=== PATIENT | female | born 1985 | race Two or more races ===

== ENCOUNTER 2019-05-19 18:39 | Emergency (ER) | payer MEDICAID ==
[~2019-05-19] VITALS: Ht 157.5 cm; Wt 59.0 kg
[2019-05-19 18:58] VITALS: BP 113/75
--- NOTE | 2019-05-19 19:02 | NUR ---
ED Nurse Note: Patient brought in to ER from home accompanied by sister due to ETOH. per sister, pt has been drinking vodka for last 72 hours. Patient alert and oriented x1, spontaneous eye opening and responding to voice. no combative behavior noted at this time. pt drowsy and asleep. Skin clean and intact but Lt knee old dry scar with edema noted. ERPA made aware. No cardiac or acute distress noted at this time. sister at bedside.
--- NOTE | 2019-05-19 19:10 | NUR ---
HAND-OFF: Report given to EDDIE Camejo. urine needs to be collected.
--- NOTE | 2019-05-19 19:10 | Emergency Room Report ---
History of Present Illness General Chief Complaint: Alcohol Intoxication Present Illness HPI 33-year-old female presents to the emergency department for alcohol intoxication. Patient presents with her family member whom states that she has been binge drinking a liter of vodka for the past 72 hours. Family states that patient has a history of alcohol dependency as well as withdrawal seizures. Patient's last seizure was in December. Patient is not prescribed any antiseizure medications she is prescribed antidepressants and Adderall for which the family member believes that the patient has not been compliant with. Prior to episode of binge drinking patient was sober for 2 weeks. Denies nausea vomiting. Reports 7 out of 10 severity pain, swelling and erythema with an abrasion to the left knee times unknown amount of time. Denies hitting her head, having a loss of consciousness, or having neck or back pain. Denies history of cardiac or liver problems. Denies chest pain, palpitations, or a sudden onset headache. (Kamila Mendez) Allergies: Coded Allergies: Pork (Verified Allergy, Unknown, 05/19/19) Patient History Past Medical History: see triage record, seizures Past Surgical History: none Pertinent Family History: none Social History: Reports: alcohol use Now: No Reviewed Nursing Documentation: PMH: Agreed; PSxH: Agreed (Kamila Mendez) Review of Systems All Other Systems: negative except mentioned in HPI (Kamila Mendez) Physical Exam Vital Signs Date Time Temp Pulse Resp B/P (MAP) Pulse Ox O2 Delivery O2 Flow Rate FiO2 05/19/19 18:34 98.4 89 16 113/75 (88) 97 Room Air Sp02 EP Interpretation: reviewed, normal General Appearance: no apparent distress, alert, GCS 15, non-toxic Head: normocephalic, atraumatic Eyes: bilateral eye normal inspection, bilateral eye PERRL ENT: hearing grossly normal, normal voice Neck: full range of motion, no bony tend Respiratory: lungs clear, normal breath sounds, speaking full sentences Cardiovascular #1: regular rate, rhythm, normal capillary refill Gastrointestinal: non tender, soft, non-distended, no guarding Rectal: deferred Genitourinary: normal inspection, no CVA tenderness Musculoskeletal: back normal, normal range of motion, tender - anterior left knee Neurologic: alert, responsive, motor strength/tone normal, sensory intact, grossly normal Psychiatric: judgement/insight normal Skin: abrasion, other Lymphatic: no adenopathy (Kamila Mendez) Medical Decision Making PA Attestation Dr. Rodriguez is my supervising Physician whom patient management has been discussed with. (Kamila Mendez) Diagnostic Impression: Primary Impression: Acute alcoholic intoxication Qualified Codes: F10.920 - Alcohol use, unspecified with intoxication, uncomplicated Additional Impressions: History of seizures Knee abrasion Qualified Codes: S80.212A - Abrasion, left knee, initial encounter Cellulitis Qualified Codes: L03.116 - Cellulitis of left lower limb ER Course Pt. presents to the ED intoxicated with alcohol, pt. is NAD, pt. is alert, no obvious signs of trauma, able to ambulate to chair. Ddx considered but are not limited to ETOH, Trauma, Syncope, dementia, OD Vital signs: are WNL, pt. is afebrile H&PE are most consistent with ETOH abuse. ORDERS: none required at this time ED INTERVENTIONS: Observance while she detoxifies for signs of acute w/d . Pt. was allowed to sleep/rest. DISCHARGE: At this time pt. is stable for d/c to home. Will provide printed patient care instructions, and any necessary prescriptions. Care plan and follow up instructions have been discussed with the patient prior to discharge. (Kamila Mendez) ER Course Patient presents with alcohol intoxication. She signed out to me. She is now awake walking to the bathroom without any difficulty. Will discharge home. Because of her history of alcohol withdrawal seizure, will put her on Librium. She also has small abrasion to her knee with possible cellulitis. We will put her on antibiotics also. (Nael Clements MD) Last Vital Signs Date Time Temp Pulse Resp B/P (MAP) Pulse Ox O2 Delivery O2 Flow Rate FiO2 05/19/19 18:58 98.4 80 16 113/75 97 Room Air (Kamila Mendez) Status: improved (Nael Clements MD) Disposition: HOME, SELF-CARE Condition: Stable Scripts Chlordiazepoxide (Chlordiazepoxide HCl) 25 Mg Capsule 25 MG ORAL THREE TIMES A DAY, #15 CAP 0 Refills Prov: Nael Clements MD 05/19/19 Trimethoprim/Sulfamethoxazole 160/800* (BACTRIM DS TABLET*) 1 Each Tablet 1 TAB ORAL Q12H, #14 TAB 0 Refills Prov: Nael Clements MD 05/19/19 Patient Instructions: Alcohol Intoxication, [id number] Additional Instructions: Follow-up with your doctor in 7 days. Go to rehab. Return if worse. Kamila Mendez May 19, 2019 19:10 Nael Clements MD May 19, 2019 22:49
--- NOTE | 2019-05-19 19:12 | NUR ---
ED Nurse Note: pt was able to use bedside commode. she is unsteady on her feet. fluids are running, she does not appear to be in any distress at this time. her sister is at bedside. will continue to monitor
[2019-05-19 19:19] LABS: BASOPHILS % (AUTO) 1.6 % (0.0-2.0); EOSINOPHILS % (AUTO) 0.4 % (0.0-3.0); HEMATOCRIT 34.2 % (37.0-47.0); HEMOGLOBIN 10.9 G/DL (12.0-16.0); LYMPHOCYTES % (AUTO) 29.5 % (20.0-45.0); MEAN CORPUSCULAR VOLUME 81 FL (80-99); MONOCYTES % (AUTO) 4.4 % (1.0-10.0); NEUTROPHILS % (AUTO) 64.2 % (45.0-75.0); PLATELET COUNT 394 K/UL (150-450); RED BLOOD COUNT 4.23 M/UL (4.20-5.40); RED CELL DISTRIBUTION WIDTH 16.6 % (11.6-14.8); WHITE BLOOD COUNT 4.9 K/UL (4.8-10.8)
--- NOTE | 2019-05-19 19:24 | NUR ---
ED Nurse Note: x ray is at pt bedside
[2019-05-19 19:27] LABS: ANION GAP 11 mmol/L (5-15); BLOOD UREA NITROGEN 10 mg/dL (7-18); CALCIUM 7.2 MG/DL (8.5-10.1); CARBON DIOXIDE 26 MMOL/L (21-32); CHLORIDE 111 MMOL/L (98-107); CREATININE 0.5 MG/DL (0.55-1.30); POTASSIUM 3.5 MMOL/L (3.5-5.1); SODIUM 148 MMOL/L (136-145)
[2019-05-19 19:33] LABS: ALANINE AMINOTRANSFERASE 42 U/L (12-78); ALBUMIN 3.6 G/DL (3.4-5.0); ALBUMIN/GLOBULIN RATIO 1.2 (1.0-2.7); ALKALINE PHOSPHATASE 64 U/L (46-116); ASPARTATE AMINO TRANSFERASE 28 U/L (15-37); BILIRUBIN,TOTAL 0.1 MG/DL (0.2-1.0)
[2019-05-19 20:28] VITALS: BP 121/80
--- NOTE | 2019-05-19 20:53 | NUR ---
ED Nurse Note: pt mother and sister both at bedside. pt asked for food and was able to finish a ham sandwich and apple juice
--- NOTE | 2019-05-19 21:00 | NUR ---
ED Nurse Note: ER PA is at bedside talking with pt and family
--- NOTE | 2019-05-19 21:45 | NUR ---
ED Nurse Note: pt's sister's contact info: [phone]
[2019-05-19] MEDS ORDERED: Cephalexin 500mg cap ORAL ONE (22:15)
[2019-05-19] MEDS ORDERED: chlordiazePOXIDE 25mg Cap ORAL ONE (22:45)
[2019-05-19] MEDS ORDERED: LIBRIUM25 MG ORAL (22:48)
[2019-05-19] MEDS ORDERED: BACTRIM DS TAB1 EAC1 ORAL (22:48)
[2019-05-19 22:54] VITALS: BP 121/80
--- NOTE | 2019-05-19 22:54 | NUR ---
ER DISCHARGE NOTE: Patient is cleared to be discharged per ERMD, pt is aox4, on room air, with stable vital signs. pt was given dc and prescription instructions, pt was able to verbalize understanding, pt id band and iv site removed without complications. pt is able to ambulate with steady gait. pt took all belongings and left with family.
--- NOTE | 2019-05-20 12:03 | Diagnostic Imaging Report ---
Indication: Left knee pain Technique: 3 views of the left knee Comparison: None Findings: No suprapatellar effusion. No acute fractures. No dislocations. Impression: Negative
== END 2019-05-19 22:54 | disposition home or self-care (01) ==
LOC: EDBD 18:39 → EMR 18:50
DX: F10.929 Alcohol use, unspecified with intoxication, unspecified (principal); G40.909 Epilepsy, unspecified, not intractable, without status epilepticus; S80.212A Abrasion, left knee, initial encounter; L03.116 Cellulitis of left lower limb; X58.XXXA Exposure to other specified factors, initial encounter; Y92.9 Unspecified place or not applicable
CPT/HCPCS: 36415; 73562; 80053; 80307; 81025; 82962; 85025; 96361; 96374; 96375; G0480; G0481; J2405; Z7502; 99284

== ENCOUNTER 2019-05-28 18:36 | Emergency (ER) | payer MEDICAID ==
[2019-05-28] VITALS (7 sets, daily range): BP systolic 112–124; BP diastolic 66–85
[~2019-05-28] VITALS: Ht 162.6 cm; Wt 63.5 kg
[~2019-05-28 18:36] MED LIST: BACTRIM DS TAB1 EAC1 ORAL; LIBRIUM25 MG ORAL
--- NOTE | 2019-05-28 18:36 | NUR ---
ED Nurse Note: KAYY notified and received order for sitter at the bedside for pt on 5150. dts. pt currently calm, suicide precautions in place, mother at the bedside. sitter Zhang at the bedside as well.
--- NOTE | 2019-05-28 18:36 | NUR ---
ED Nurse Note: nurse sup notified for sitter.
--- NOTE | 2019-05-28 18:36 | NUR ---
ED Nurse Note: BROUGHT BY RA34 FROM HOME DUE TO ETOH AND SI; 150ML VODKA WITHIN 1 HOUR DUE TO SI. A/OX4. BS 101
[2019-05-28] MEDS ORDERED: Thiamine 100mg tab ORAL ONE (18:45)
--- NOTE | 2019-05-28 18:49 | NUR ---
ED Nurse Note: [employer] AND MOTHER AT BEDSIDE.
--- NOTE | 2019-05-28 18:52 | NUR ---
HAND-OFF: Report given to Heriberto Moscoso RN. NAD noted. [employer] at bedside
[2019-05-28 19:01] LABS: HEMATOCRIT 34.5 % (37.0-47.0); HEMOGLOBIN 11.2 G/DL (12.0-16.0); MEAN CORPUSCULAR VOLUME 78 FL (80-99); PLATELET COUNT 97 K/UL (150-450); RED BLOOD COUNT 4.41 M/UL (4.20-5.40); RED CELL DISTRIBUTION WIDTH 17.5 % (11.6-14.8); WHITE BLOOD COUNT 2.9 K/UL (4.8-10.8)
[2019-05-28] MEDS ORDERED: Thiamine 100mg tab ONE (19:07)
[2019-05-28 19:09] LABS: ANION GAP 12 mmol/L (5-15); BLOOD UREA NITROGEN 11 mg/dL (7-18); CALCIUM 8.6 MG/DL (8.5-10.1); CARBON DIOXIDE 28 MMOL/L (21-32); CHLORIDE 107 MMOL/L (98-107); CREATININE 0.4 MG/DL (0.55-1.30); POTASSIUM 3.9 MMOL/L (3.5-5.1); SODIUM 147 MMOL/L (136-145)
[2019-05-28 19:15] LABS: ALANINE AMINOTRANSFERASE 94 U/L (12-78); ALBUMIN 4.1 G/DL (3.4-5.0); ALBUMIN/GLOBULIN RATIO 1.1 (1.0-2.7); ALKALINE PHOSPHATASE 120 U/L (46-116); ASPARTATE AMINO TRANSFERASE 161 U/L (15-37); BILIRUBIN,TOTAL 0.2 MG/DL (0.2-1.0)
--- NOTE | 2019-05-28 19:15 | NUR ---
ED Nurse Note: received patient from anastasiya smith. patient resting in bed with no acute distress. pd and family at bedside. iv intact and patent; fluids running as prescribed. environmental risk reduction observed. patient denies hi or si. dimmed lights, provided warm blanket, decreased environmental stimuli. will continue to monitor.
--- NOTE | 2019-05-28 19:30 | NUR ---
ED Nurse Note: urine collected; sent down to lab.
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
--- NOTE | 2019-05-28 20:15 | NUR ---
ED Nurse Note: patient in bed with no acute distress. family at bedside. bed rails raised; bed locked at lowest position. belongings locked in psych locker #3.
--- NOTE | 2019-05-28 21:10 | NUR ---
ED Nurse Note: patient sleeping in bed with no acute distress. respirations even and unlabored.
--- NOTE | 2019-05-28 22:30 | NUR ---
ED Nurse Note: patient resting in bed. provided nourishment and warm blankets. repositioned for comfort. family at bedside.
[2019-05-28] MEDS ORDERED: chlordiazePOXIDE 25mg Cap ORAL ONE (23:30)
[2019-05-28] MEDS ORDERED: LORazepam Inj 2mg/ml 1ml IV ONE (23:30)
--- NOTE | 2019-05-28 23:45 | NUR ---
ED Nurse Note: patient sleeping in bed with no acute distress. respirations even and unlabored. vss. family at bedside. decreased environmental stimuli
[2019-05-29] VITALS (11 sets, daily range): BP systolic 115–128; BP diastolic 71–89
--- NOTE | 2019-05-29 00:07 | NUR ---
ED Nurse Note: repeat alcohol level drawn; sent down to lab. patient sleeping in bed with no acute distress. family member at bedside.
--- NOTE | 2019-05-29 01:15 | NUR ---
ED Nurse Note: assisted patient to the bathroom. ambulates with steady gait. assisted back to bed; patient resting with no acute distress. side rails raised; bed locked at lowest position. family at bedside.
--- NOTE | 2019-05-29 02:10 | NUR ---
ED Nurse Note: patient sleeping in bed with no acute signs of distress. respirations even and unlabored. will continue to monitor.
--- NOTE | 2019-05-29 03:30 | NUR ---
ED Nurse Note: patient sleeping in bed.nad. vss.
--- NOTE | 2019-05-29 04:50 | NUR ---
ED Nurse Note: patient reports discomfort with iv. per angelica, ok to dc iv. patient resting in bed with no acute distress. discussed plan of care with patient; aware of pending transfer to psych facility, understand 5150 status, made aware of repeat blood alcohol blood draw at 0600. family at bedside. will continue to monitor.
--- NOTE | 2019-05-29 05:40 | NUR ---
ED Nurse Note: repeat blood alcohol level drawn; sent down to lab. patient ao4. nad. vss. patient calm and cooperative. denies pain or any complaints at this time. denies hi or si. states "i feel so much better now. i don't know why i drank so much." family at bedside.
--- NOTE | 2019-05-29 06:29 | NUR ---
ED Nurse Note: patient awake and ambulatory with steady gait. provided with nourishment. ao4. nad. family at bedside.
--- NOTE | 2019-05-29 07:24 | NUR ---
HAND-OFF: Report given to yolis smith.
--- NOTE | 2019-05-29 07:42 | NUR ---
ED Nurse Note: resumed care 0725 pt sleeping mother and sitter at bedside. etoh level drawn and sent to lab.
[2019-05-29 10:42] LABS: APPEARANCE,URINE CLEAR; BILIRUBIN, URINE NEGATIVE (NEGATIVE); COLOR,URINE PALE YELLOW; GLUCOSE, URINE (UA) NEGATIVE (NEGATIVE); KETONES,URINE NEGATIVE (NEGATIVE); LEUKOCYTE ESTERASE ,URINE NEGATIVE (NEGATIVE); NITRITE,URINE NEGATIVE (NEGATIVE); PH,URINE 6.5 (4.5-8.0); PROTEIN,URINE NEGATIVE (NEGATIVE); UROBILINOGEN,URINE NORMAL MG/DL (0.0-1.0)
--- NOTE | 2019-05-29 11:05 | NUR ---
ED Nurse Note: Pt's urine was sent and resulted per accepting favility request. pt sleeping no new orders.
--- NOTE | 2019-05-29 11:53 | NUR ---
[facility] was called and transport for 1500 has been arranged.
--- NOTE | 2019-05-29 14:20 | NUR ---
ED Nurse Note: pt ambulated to restroom with steady gait sitter at bedside .
--- NOTE | 2019-05-29 14:20 | NUR ---
ED Nurse Note: pt provided with a lunch tray.
--- NOTE | 2019-05-29 15:05 | NUR ---
ED Nurse Note: pt picked up via [id number] now
--- NOTE | 2019-05-29 15:06 | NUR ---
ED Nurse Note: Pt cleared by health care Provider for discharge. DC instruction was given and explained to pt and verbalized understanding of teachings. All medical deviecs such as ID band removed. Pt is AAO x4, ambulatory and left with all personal belongings via [id number]
== END 2019-05-29 15:00 ==
LOC: EDBD 18:36 → EMR 19:38
DX: T51.0X2A Toxic effect of ethanol, intentional self-harm, initial encounter (principal); F10.920 Alcohol use, unspecified with intoxication, uncomplicated; Y92.9 Unspecified place or not applicable; Z91.018 Allergy to other foods
CPT/HCPCS: 36415; 80053; 80307; 81003; 81025; 85007; 85025; 96361; 96374; G0480; G0481; Z7502; 99284; 99285

== ENCOUNTER 2019-06-09 20:57 | Emergency (ER) | payer MEDICAID ==
[~2019-06-09] VITALS: Ht 157.5 cm; Wt 59.0 kg
[2019-06-09] MEDS ORDERED: LIBRIUM10 MG ORAL (21:06)
[2019-06-09] MEDS ORDERED: TRAZODONE HCL100 MG ORAL (21:06)
[2019-06-09] MEDS ORDERED: ZOFRAN4 M3 ORAL (21:06)
--- NOTE | 2019-06-09 21:08 | NUR ---
ED Nurse Note: pt ambulated to ed c/o alcohol withdrawal. per pt her she had a pint of alcohol this morning. pt presents with tremors, and states that she threw up "20 times and havent been able to eat anything today"
--- NOTE | 2019-06-09 21:10 | NUR ---
ED Nurse Note: pt mother at bedside
[2019-06-09 21:11] VITALS: BP 125/79
--- NOTE | 2019-06-09 21:38 | NUR ---
ED Nurse Note: iv line established, patent and intact. blood specimen collected; sent to lab. pt urine sample also obtained and sent to lab.
[2019-06-09] MEDS ORDERED: LORazepam Inj 2mg/ml 1ml IV ONE ×2 (21:45→23:00)
[2019-06-09 21:59] LABS: HEMATOCRIT 27.3 % (37.0-47.0); HEMOGLOBIN 8.9 G/DL (12.0-16.0); MEAN CORPUSCULAR VOLUME 80 FL (80-99); PLATELET COUNT 175 K/UL (150-450); RED BLOOD COUNT 3.41 M/UL (4.20-5.40); RED CELL DISTRIBUTION WIDTH 18.5 % (11.6-14.8)
[2019-06-09 22:04] LABS: ANION GAP 9 mmol/L (5-15); BLOOD UREA NITROGEN 8 mg/dL (7-18); CALCIUM 8.7 MG/DL (8.5-10.1); CARBON DIOXIDE 30 MMOL/L (21-32); CHLORIDE 100 MMOL/L (98-107); CREATININE 0.5 MG/DL (0.55-1.30); POTASSIUM 3.6 MMOL/L (3.5-5.1); SODIUM 139 MMOL/L (136-145)
[2019-06-09 22:09] LABS: ALANINE AMINOTRANSFERASE 109 U/L (12-78); ALBUMIN/GLOBULIN RATIO 1.1 (1.0-2.7); ALKALINE PHOSPHATASE 89 U/L (46-116); ASPARTATE AMINO TRANSFERASE 122 U/L (15-37); BILIRUBIN,TOTAL 0.5 MG/DL (0.2-1.0)
[2019-06-09] MEDS ORDERED: Ketorolac 30mg Inj IV ONE (23:00)
[2019-06-10 00:10] VITALS: BP 122/82
--- NOTE | 2019-06-10 00:10 | NUR ---
ER DISCHARGE NOTE: Patient is cleared to be discharged per ERMD, pt is aox4, on room air, with stable vital signs. accompanied by family member. patient provided with detox and drug rehab referrals. pt was given dc and prescription instructions, pt was able to verbalize understanding, pt id band and iv site removed without complications. pt is able to ambulate with steady gait. pt took all belongings.
--- NOTE | 2019-06-10 00:30 | Emergency Room Report ---
History of Present Illness General Chief Complaint: Alcohol Intoxication Source: Patient, Family Member Present Illness HPI 34-year-old female presents ED for evaluation. Brought in by family for alcohol withdrawal. Patient states he has been drinking every day for months. States her last drink was this morning. States she is feeling shaky. Denies drug use. Denies SI or HI. Denies hearing voices. Notes nausea, denies vomiting. Denies abdominal pain. No other aggravating relieving factors. Denies any other associated symptoms Allergies: Coded Allergies: Pork (Verified Allergy, Unknown, 05/19/19) Patient History Past Medical History: seizures Past Surgical History: none Pertinent Family History: none Social History: Reports: alcohol use; Denies: smoking, drug use Last Menstrual Period: 05/31/19 Now: No Immunizations: UTD Reviewed Nursing Documentation: PMH: Agreed; PSxH: Agreed Nursing Documentation-PMH Past Medical History: No History, Except For Hx Seizures: Yes Review of Systems All Other Systems: negative except mentioned in HPI Physical Exam Vital Signs Date Time Temp Pulse Resp B/P (MAP) Pulse Ox O2 Delivery O2 Flow Rate FiO2 06/09/19 21:01 98.8 105 14 125/79 (94) 97 Room Air Sp02 EP Interpretation: reviewed, normal General Appearance: no apparent distress, alert, GCS 15, non-toxic Head: normocephalic, atraumatic Eyes: bilateral eye normal inspection, bilateral eye PERRL ENT: hearing grossly normal, normal pharynx, no angioedema, normal voice Neck: full range of motion, supple/symm/no masses Respiratory: chest non-tender, lungs clear, normal breath sounds, speaking full sentences Cardiovascular #1: regular rate, rhythm, no edema Cardiovascular #2: 2+ carotid (R), 2+ carotid (L), 2+ radial (R), 2+ radial (L) , 2+ dorsalis pedis (R), 2+ dorsalis pedis (L) Gastrointestinal: normal bowel sounds, non tender, soft, non-distended, no guarding, no rebound Rectal: deferred Genitourinary: normal inspection, no CVA tenderness Musculoskeletal: back normal, normal range of motion, gait/station normal, non- tender Neurologic: alert, motor strength/tone normal, oriented x3, sensory intact, responsive, speech normal Psychiatric: no suicidal/homicidal ideation, no delusions, anxious Reflexes: 3+ bicep (R), 3+ bicep (L), 3+ tricep (R), 3+ tricep (L), 3+ knee (R) , 3+ knee (L) Skin: no rash Lymphatic: no adenopathy Medical Decision Making Diagnostic Impression: Primary Impression: Alcohol withdrawal Qualified Codes: F10.239 - Alcohol dependence with withdrawal, unspecified ER Course Hospital Course 34-year-old female presents ED complaining of shaking, stating she is in withdrawal. Chronic history of alcohol use Differential diagnoses include: Alcohol intoxication, drug abuse, opioid withdrawal, alcohol withdrawal, dehydration, drug seeking behavior Clinical course Patient placed on stretcher. On quality control clerk. After initial history and physical I ordered labs, IV fluids, Ativan, zofran Labs reviewed-electrolytes okay, hemoglobin/hematocrit stable, no leukocytosis, alcohol level negative aspirin/Tylenol levels negative, Utox +BZs Patient has been prescribed Librium and Zofran from another emergency room. I discussed findings with patient and family. Symptoms controlled in ED. Vitals stable no signs of acute withdrawal or DTs. patient can be safely discharged to home. Encourage patient to continue the Librium and Zofran as prescribed. Will provide outpatient detox referral services i. I feel this is a highly complex case requiring extensive working including EKG/Rhythm strip, Xray/CT/US, Blood/urine lab work, repeat exams while in ED, and administration of strong opiates/narcotics for pain control, admission to hospital or close patient follow up. Diagnosis - alcohol withdrawal Stable and discharged to home. Followup with PMD/detox. Return to ED if symptoms recur or worsen Labs Test 06/09/19 21:35 White Blood Count 3.0 K/UL (4.8-10.8) Red Blood Count 3.41 M/UL (4.20-5.40) Hemoglobin 8.9 G/DL (12.0-16.0) Hematocrit 27.3 % (37.0-47.0) Mean Corpuscular Volume 80 FL (80-99) Mean Corpuscular Hemoglobin 26.1 PG (27.0-31.0) Mean Corpuscular Hemoglobin Concent 32.6 G/DL (32.0-36.0) Red Cell Distribution Width 18.5 % (11.6-14.8) Platelet Count 175 K/UL (150-450) Mean Platelet Volume 4.9 FL (6.5-10.1) Neutrophils (%) (Auto) % (45.0-75.0) Lymphocytes (%) (Auto) % (20.0-45.0) Monocytes (%) (Auto) % (1.0-10.0) Eosinophils (%) (Auto) % (0.0-3.0) Basophils (%) (Auto) % (0.0-2.0) Differential Total Cells Counted 100 Neutrophils % (Manual) 75 % (45-75) Lymphocytes % (Manual) 20 % (20-45) Monocytes % (Manual) 5 % (1-10) Eosinophils % (Manual) 0 % (0-3) Basophils % (Manual) 0 % (0-2) Band Neutrophils 0 % (0-8) Platelet Estimate Adequate Platelet Morphology Normal Polychromasia 1+ Hypochromasia 1+ Anisocytosis 1+ Microcytosis 1+ Sodium Level 139 MMOL/L (136-145) Potassium Level 3.6 MMOL/L (3.5-5.1) Chloride Level 100 MMOL/L (98-107) Carbon Dioxide Level 30 MMOL/L (21-32) Anion Gap 9 mmol/L (5-15) Blood Urea Nitrogen 8 mg/dL (7-18) Creatinine 0.5 MG/DL (0.55-1.30) Estimat Glomerular Filtration Rate > 60 mL/min (>60) Glucose Level 87 MG/DL (74-106) Calcium Level 8.7 MG/DL (8.5-10.1) Total Bilirubin 0.5 MG/DL (0.2-1.0) Aspartate Amino Transf (AST/SGOT) 122 U/L (15-37) Alanine Aminotransferase (ALT/SGPT) 109 U/L (12-78) Alkaline Phosphatase 89 U/L (46-116) Total Protein 7.5 G/DL (6.4-8.2) Albumin 4.0 G/DL (3.4-5.0) Globulin 3.5 g/dL Albumin/Globulin Ratio 1.1 (1.0-2.7) Human Chorionic Gonadotropin, Qual Negative (NEGATIVE) Salicylates Level < 0.2 ug/mL (2.8-20) Urine Opiates Screen Negative (NEGATIVE) Acetaminophen Level < 2 MCG/ML (10-30) Urine Barbiturates Screen Negative (NEGATIVE) Phencyclidine (PCP) Screen Negative (NEGATIVE) Urine Amphetamines Screen Negative (NEGATIVE) Urine Benzodiazepines Screen Positive (NEGATIVE) Urine Cocaine Screen Negative (NEGATIVE) Urine Marijuana (THC) Screen Negative (NEGATIVE) Serum Alcohol < 3 mg/dL Last Vital Signs Date Time Temp Pulse Resp B/P (MAP) Pulse Ox O2 Delivery O2 Flow Rate FiO2 06/10/19 00:10 98.8 95 12 122/82 98 Room Air Status: improved Disposition: HOME, SELF-CARE Condition: Stable Referrals: NON PHYSICIAN (PCP) [facility] Patient Instructions: Alcohol Intoxication, [id number] Additional Instructions: take your librium and zofran as prescribed. followup with outpatient detox services Cesar Robles MD Jun 10, 2019 00:30
== END 2019-06-10 00:10 | disposition home or self-care (01) ==
LOC: EMR 21:15
DX: F10.239 Alcohol dependence with withdrawal, unspecified (principal); Z91.018 Allergy to other foods; G40.909 Epilepsy, unspecified, not intractable, without status epilepticus
CPT/HCPCS: 36415; 80053; 80307; 84703; 85007; 85025; 96361; 96374; 96375; 96376; G0480; G0481; J1885; J2405; J7030; Z7502; 99284

== ENCOUNTER 2019-09-09 11:09 | Emergency (ER) | payer MEDICAID ==
[~2019-09-09] VITALS: Ht 162.6 cm; Wt 59.0 kg
[~2019-09-09 11:09] MED LIST changes: +LIBRIUM10 MG ORAL; +TRAZODONE HCL100 MG ORAL; +ZOFRAN4 M3 ORAL
--- NOTE | 2019-09-09 11:10 | NUR ---
ED Nurse Note: Pt BIBA from home d/t ETOH. Pt is AOx2 as of now; noted to be lethargic. VSS on triage. Placed on bed. Will continue to monitor. Per report, mother called 911.
[2019-09-09 11:15] VITALS: BP 121/82
[2019-09-09] MEDS ORDERED: Thiamine 100mg tab ORAL ONE (11:15)
--- NOTE | 2019-09-09 11:20 | NUR ---
ED Nurse Note: LUCHO MARTINES- MOTHER
[2019-09-09 11:35] LABS: HEMATOCRIT 35.1 % (37.0-47.0); HEMOGLOBIN 10.8 G/DL (12.0-16.0); MEAN CORPUSCULAR VOLUME 78 FL (80-99); PLATELET COUNT 289 K/UL (150-450); RED BLOOD COUNT 4.48 M/UL (4.20-5.40); RED CELL DISTRIBUTION WIDTH 19.4 % (11.6-14.8)
[2019-09-09 11:52] LABS: ANION GAP 16 mmol/L (5-15); BLOOD UREA NITROGEN 13 mg/dL (7-18); CALCIUM 8.3 MG/DL (8.5-10.1); CARBON DIOXIDE 24 MMOL/L (21-32); CHLORIDE 104 MMOL/L (98-107); CREATININE 0.5 MG/DL (0.55-1.30); POTASSIUM 3.9 MMOL/L (3.5-5.1); SODIUM 144 MMOL/L (136-145)
[2019-09-09 11:58] LABS: ALANINE AMINOTRANSFERASE 32 U/L (12-78); ALBUMIN/GLOBULIN RATIO 1.1 (1.0-2.7); ALKALINE PHOSPHATASE 88 U/L (46-116); ASPARTATE AMINO TRANSFERASE 40 U/L (15-37); BILIRUBIN,TOTAL 0.2 MG/DL (0.2-1.0)
--- NOTE | 2019-09-09 12:10 | NUR ---
ED Nurse Note: Pt ambulated and able to urinate; obtained specimen; sent to labs.
--- NOTE | 2019-09-09 12:15 | NUR ---
ED Nurse Note: Offered sandwich and orange juice.
[2019-09-09 13:11] LABS: APPEARANCE,URINE CLEAR; BILIRUBIN, URINE NEGATIVE (NEGATIVE); COLOR,URINE PALE YELLOW; GLUCOSE, URINE (UA) NEGATIVE (NEGATIVE); KETONES,URINE NEGATIVE (NEGATIVE); LEUKOCYTE ESTERASE ,URINE NEGATIVE (NEGATIVE); NITRITE,URINE NEGATIVE (NEGATIVE); PH,URINE 7 (4.5-8.0); PROTEIN,URINE 3+ (NEGATIVE); UROBILINOGEN,URINE NORMAL MG/DL (0.0-1.0)
[2019-09-09 13:30] VITALS: BP 121/82
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
--- NOTE | 2019-09-09 14:44 | NUR ---
ED Nurse Note: Pt still on bed, sleeping; NAD.
[2019-09-09 16:22] VITALS: BP 121/82
--- NOTE | 2019-09-09 16:31 | NUR ---
ED Nurse Note: Pt awake and alert x 3; still on bed; denies any pain nor discomfort as of now.
--- NOTE | 2019-09-09 17:45 | NUR ---
ED Nurse Note: Pt removed IV line despite pt education given not to remove IV.
[2019-09-09] MEDS ORDERED: LORazepam Inj 2mg/ml 1ml IM ONE (18:00)
--- NOTE | 2019-09-09 18:04 | NUR ---
ED Nurse Note: Pt ambulated to restroom accompanied by security.
[2019-09-09 18:33] VITALS: BP 126/84
--- NOTE | 2019-09-09 19:12 | NUR ---
ED Nurse Note: Received report from EDDIE Tipton. Patient in room, no acute distress noted.
--- NOTE | 2019-09-09 19:12 | NUR ---
HAND-OFF: Report given to Yamilet MORGAN.
[2019-09-09 20:10] VITALS: BP 122/82
--- NOTE | 2019-09-09 20:11 | NUR ---
ED Nurse Note: Patient removed IV despite education regarding need for IV access. Charge nurse made aware.
--- NOTE | 2019-09-09 22:39 | NUR ---
ED Nurse Note: Mother at bedside.
[2019-09-09 22:56] VITALS: BP 125/85
--- NOTE | 2019-09-09 22:56 | NUR ---
ER DISCHARGE NOTE: Patient is cleared to be discharged per ERMD, pt is aox4, on room air, with stable vital signs. pt and mother was given dc instructions, pt and mother was able to verbalize understanding, pt id band removed. pt is able to ambulate with steady gait. pt took all belongings.pt discharged in stable condition accompanied by mother.
== END 2019-09-09 22:56 | disposition home or self-care (01) ==
LOC: EDBD 11:09 → EMR 12:30
DX: F10.129 Alcohol abuse with intoxication, unspecified (principal); G40.909 Epilepsy, unspecified, not intractable, without status epilepticus
CPT/HCPCS: 36415; 80053; 80307; 81003; 81025; 85007; 85025; 96360; 96361; 96372; G0480; G0481; J7030; Z7502; 99284

== ENCOUNTER 2020-07-08 08:30 | Emergency (ER) | payer MEDICAID ==
[~2020-07-08] VITALS: Ht 162.6 cm; Wt 68.0 kg
[2020-07-08] MEDS ORDERED: chlordiazePOXIDE 25mg Cap ORAL ONE (08:45)
[2020-07-08] MEDS ORDERED: LORazepam Inj 2mg/ml 1ml IV ONE ×4 (08:45→14:45)
[2020-07-08] MEDS ORDERED: cefTRIAXone 1 GM in NS 55 ML IVPB ONE (08:45)
[2020-07-08 09:00] VITALS: BP 135/79
--- NOTE | 2020-07-08 09:00 | NUR ---
ED Nurse Note: Pt came in to ED brought in by ambulance from home d/t ETOH. Per EMS, pt called 911 and stated, "I needed some water". Pt appears to be AOx3, calm and cooperative to care, currently on her menstruation, VSS, breathing even and unlabored, afebrile on triage. Pt was placed onbed and gown, safety measures in placed. will continue to monitor.
[2020-07-08 09:28] LABS: ANION GAP 20 mmol/L (5-15); BLOOD UREA NITROGEN 1 mg/dL (7-18); CARBON DIOXIDE 18 MMOL/L (21-32); CHLORIDE 97 MMOL/L (98-107); CREATININE 0.6 MG/DL (0.55-1.30); POTASSIUM 5.1 MMOL/L (3.5-5.1); SODIUM 135 MMOL/L (136-145)
[2020-07-08 09:31] LABS: APPEARANCE,URINE CLEAR; BILIRUBIN, URINE NEGATIVE (NEGATIVE); GLUCOSE, URINE (UA) NEGATIVE (NEGATIVE); KETONES,URINE 3+ (NEGATIVE); LEUKOCYTE ESTERASE ,URINE NEGATIVE (NEGATIVE); NITRITE,URINE NEGATIVE (NEGATIVE); PH,URINE 6 (4.5-8.0); PROTEIN,URINE 4+ (NEGATIVE); UROBILINOGEN,URINE NORMAL MG/DL (0.0-1.0)
[2020-07-08 09:32] LABS: COLOR,URINE YELLOW; HEMATOCRIT 40.5 % (37.0-47.0); HEMOGLOBIN 13.5 G/DL (12.0-16.0); MEAN CORPUSCULAR VOLUME 92 FL (80-99); PLATELET COUNT 55 K/UL (150-450); RED BLOOD COUNT 4.39 M/UL (4.20-5.40); RED CELL DISTRIBUTION WIDTH 16.4 % (11.6-14.8)
[2020-07-08 09:40] LABS: ALANINE AMINOTRANSFERASE 50 U/L (12-78); ALBUMIN 3.7 G/DL (3.4-5.0); ALBUMIN/GLOBULIN RATIO 0.8 (1.0-2.7); ALKALINE PHOSPHATASE 115 U/L (46-116); ASPARTATE AMINO TRANSFERASE 112 U/L (15-37); BILIRUBIN,TOTAL 0.5 MG/DL (0.2-1.0); CREATINE KINASE 317 U/L (26-308)
[2020-07-08 09:43] LABS: AMMONIA 26 umol/L (11-32)
[2020-07-08] MEDS ORDERED: dexAMETHasone 10mg/ml Inj IV ONE (10:00)
[2020-07-08] MEDS ORDERED: Azithromycin 500 MG in NS 275 ML IV ONE (10:00)
[2020-07-08] MEDS ORDERED: Calcium Gluconate 1gm/50ml 50 ML IVPB ONE (10:00)
--- NOTE | 2020-07-08 10:27 | Emergency Room Report ---
History of Present Illness General Chief Complaint: Alcohol Intoxication Source: Patient Present Illness HPI 35-year-old female with history of alcohol abuse, etoh cirrhosis, brought in by ambulance for chief complaint of "dehydration". Patient states that she regularly drinks "2 bottles of vodka a day". She states that she has "been on a elder all week" but cannot quantify when her last drink was or how much she drank. She states that she was recently seen at [facility] 4 days ago due to an alcohol withdrawal seizure. She tried to quit "cold turkey". She complains of nausea, anxiety, "shakes". LMP was today. Denies PAK, seizure, neck pain, rash, vision changes, melena, hematochezia, rash, hematuria, chest pain, shortness of breath, fever or other symptoms. She states that she was last tested for COVID-19 on June 24, 2020 and was found to be negative. The patient's symptoms were gradual onset, severity was moderate, duration since 1 day. Quality: denies pain Past medical history: Alcoholism Past surgical history: Orthopedic surgery Smoking: Denies Alcohol use: Daily drinker Drug use: Denies Review of systems: CONST: No fevers or chills, No night sweats PULMONARY: No productive cough, No shortness of breath CARDIAC: No chest pain, No palpitations GI: No vomiting, No diarrhea , No melena_or_BRBPR : No dysuria, No hematuria, No discharge NEURO: No new_focal_weakness_or_numbness, No confusion, No vision changes 14 point Review of Systems is otherwise negative except per HPI Physical Exam: GENERAL: Awake_alert_ nontoxic, no acute distress Spo2 98% on RA -normal EYES: Extraocular muscles are intact. Conjunctivae clear. Lids without swelling ENT: External nose and ear normal_in_appearance. Oropharynx clear. Head_atraumatic, Moist_oral_mucosa NECK: No JVD. No meningismus. No thyromegaly. Supple. Trachea midline RESP: Normal respiratory effort. Symmetric rise. No stridor. Clear_t o_auscultation_No_rales_No_wheezes CARDIAC: tachycardic and regular rhytm. No_significant pedal edema. ABDOMEN: Soft. Nondistended. Nontender_No_rebound_or_guarding. MSK: Normal muscle tone, without rigidity. Extremities without asymmetric deformity or swelling. SKIN: Warm and dry. No visible cyanosis or pallor. Healed left forehead scar. No petechiae. NEUROLOGIC: Alert, oriented x3. Motor_and_sensation_grossly_intact. No truncal ataxia. Gait_normal Psych: Normal mood and affect, normal judgment and insight - COORDINATION OF CARE Case was discussed with: Patient Any labs and imaging that were ordered were interpreted as part of the medical decision making: Medical Decision Making/Plan: Differential diagnosis includes alcohol intoxication, alcohol withdrawal, hypoglycemia, drug intoxication or overdose, head injury, among others. Upon arrival the patients fingerstick glucose was normal with no evidence of hypoglycemia. EKG demonstrated sinus tachycardia with nonspecific ST changes. Normal intervals, no signs of acute ischemia. The patient had tremors and tachycardia, and their presentation seems most consistent with alcohol withdrawal. Labs show alcohol intoxication, dehydration, and anion gap metabolic acidosis likely secondary to starvation ketosis due to alcohol abuse. Calcium was low at 8.0 therefore it was repleted. Platelets are chronically low at 55. CT head is negative for ICH or fx. Patient was incidentally found to be positive for COVID-19 ED intervention included NS 30 cc/kg bolus, Rocephin, azithromycin, and Decadron. The patient was given Ativan and will be observed in the emergency department with serial neurologic exams for improvement in their mental status. The patients presentation seems to be consistent with alcohol withdrawal, without any complications such as alcohol intoxication, head injury, GI bleeding, or intracranial bleeding. After serial neurologic exams in the emergency department, the patient improved but still has evidence of persistent alcohol withdrawal requiring admission to prevent delirium tremens. [facility] The patient has been stabilized to the best of this emergency department's capabilities. Given the patient's medical needs, appropriate facilities for transfer were discussed and the decision has been made to transfer this patient to Dr Poole. The receiving facility has the capacity and capabilities to provide care for the patient. I spoke with Dr Poole who accepted the patient in transfer. The patient has been informed and updated of their current clinical status. The patient has given verbal consent for the transfer. The risks and benefits were explained and the patient verbalizes their understanding. 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 Time is exclusive of separately billable procedures. Time includes: direct patient care, continuous monitoring and multiple patient reassessment, coordination of patient care, review of patient's medical records, medical consultation, family consultation regarding treatment decisions and documentation of patient care. Medical Decision Making Diagnostic Impression: Primary Impression: Acute alcoholic intoxication Additional Impressions: COVID-19 Starvation ketoacidosis Cirrhosis Thrombocytopenia Hypocalcemia EKG Diagnostic Results Troponin ordered: Yes WANDER Farrell 12-lead EKG (interpreted by me) Time: 0849 Indication: Rhythm analysis Tracing visualized and Interpreted by me. Rhythm: Sinus tachycardia Rate: 121 bpm QTc: 451 Morphology: No_significant_ST_elevations_or_depressions, No STEMI Impression: sinus tachycardia, nonspecific ST changes inf and lat leads. Rhythm Strip Diag. Results Rhythm Strip Time: 10:23 EP Interpretation: yes Rate: 110 Rhythm: no PVC's, no ectopy - sinus tachycardia Chest X-Ray Diagnostic Results Chest X-Ray Diagnostic Results : WANDER Hickeyibmike Farrell Chest X-Ray: Views: 1 view(s) Indication: COVID Findings: Normal heart size. Mediastinum normal. No infiltrate. Impression: NAD The X-ray(s) were independently viewed and interpreted contemporaneously Electronically signed by Vicenta mai DO Reevaluation Time: 12:32 Last Vital Signs Date Time Temp Pulse Resp B/P (MAP) Pulse Ox O2 Delivery O2 Flow Rate FiO2 07/08/20 09:27 99 16 132/76 96 07/08/20 09:00 97.9 Room Air Status: improved Disposition: SHORT-TERM HOSP - SO CALL [facility] Admit Decision Time: 12:33 Condition: Stable Referrals: [facility],REFERR[facility] (PCP) Vicenta Sue D.O. Jul 08, 2020 10:27
--- NOTE | 2020-07-08 10:56 | NUR ---
ED Nurse Note: pt returned from CT
--- NOTE | 2020-07-08 10:59 | NUR ---
ED Nurse Note: x-ray tech at bedside.
--- NOTE | 2020-07-08 11:42 | NUR ---
ED Nurse Note: repeat BMP sent down.
--- NOTE | 2020-07-08 11:54 | Diagnostic Imaging Report ---
Indications: Altered mental status Technique: Spiral acquisitions obtained through the brain. Angled axial and coronal 5 x 5 mm slices were reconstructed. Total dose length product 992 mGycm. CTDI vol(s) 53 mGy. Dose reduction achieved using automated exposure control Comparison: None. Findings: Frontal convexity extra-axial CSF spaces are somewhat prominent for age. Normal hawthorne-white differentiation. Normal size ventricles. No acute intracranial hemorrhage or edema. No mass effect or midline shift. The orbits are unremarkable. The calvarium is intact. The mastoids are clear. Impression: Slight frontal cortical volume loss, somewhat striking for age Negative for acute intracranial bleed or mass effect The CT scanner at [facility] is accredited by the [employer] and the scans are performed using protocols designed to limit radiation exposure to as low as reasonably achievable to attain images of sufficient resolution adequate for diagnostic evaluation.
[2020-07-08 12:05] LABS: ANION GAP 22 mmol/L (5-15); BLOOD UREA NITROGEN 23 mg/dL (7-18); CALCIUM 7.8 MG/DL (8.5-10.1); CARBON DIOXIDE 14 MMOL/L (21-32); CHLORIDE 100 MMOL/L (98-107); CREATININE 0.4 MG/DL (0.55-1.30); POTASSIUM 4.1 MMOL/L (3.5-5.1); SODIUM 136 MMOL/L (136-145)
[2020-07-08 14:00] VITALS: BP 136/78
--- NOTE | 2020-07-08 14:36 | Diagnostic Imaging Report ---
Procedure: XRAY Chest 1v Reason for study: Reason For Exam: COUGH Comparison films: None. FINDINGS: A single one view chest is obtained. Vascularity is normal. The lung hall are clear bilaterally. Cardiac and mediastinal silhouette are within normal limits. CP angles are sharp. The bony thorax appear unremarkable. IMPRESSION: NO ACUTE CARDIOPULMONARY DISEASE.
--- NOTE | 2020-07-08 15:44 | NUR ---
ED Nurse Note: report given to Radames staff at [facility] in [place] for transfer of care.
[2020-07-08 16:12] VITALS: BP 134/76
--- NOTE | 2020-07-08 16:12 | NUR ---
ED Nurse Note: Pt was transferred to [facility] in [place] under the care of dr. ag. Report was given to Radames staff at [facility]. Pt was transferred on stable condition; all belonginsg sent with pt.
--- NOTE | 2020-07-09 12:57 | Cardiology Report ---
APPROVED REPORT EKG Measurement Heart [id number] <Conclusion> Sinus tachycardia Nonspecific ST and T wave abnormality Abnormal ECG
== END 2020-07-08 16:15 | disposition short-term general hospital (02) ==
LOC: EDBD 08:30 → EMR 08:55
DX: F10.129 Alcohol abuse with intoxication, unspecified (principal); U07.1 COVID-19; E87.2 Acidosis; K74.60 Unspecified cirrhosis of liver; D69.6 Thrombocytopenia, unspecified; E83.51 Hypocalcemia; Z91.018 Allergy to other foods
CPT/HCPCS: 36415; 70450; 71045; 80048; 80053; 80307; 81003; 82140; 82550; 84443; 84484; 84702; 85007; 85025; 93005; 96361; 96365; 96367; 96375; 96376; G0480; G0481; J0456; J0610; J0696; J2405; J7030; J7050; U0002; Z7502; 99291